=== PATIENT | male | born 1985 | race African-American/Black ===

== ENCOUNTER 2016-06-01 13:03 | Emergency (ER) | payer OTHER ==
[~2016-06-01] VITALS: Wt 65.0 kg
[~2016-06-01 13:03] MED LIST: CIPR500T4 PO; HYDR-3498 PO; LOPE2CAP PO; MAG355OR15 PO; ONDA4TAB8 PO
[2016-06-01] MEDS ORDERED: KETOROLAC 15 MG INJ IV STA (14:42)
[2016-06-01] MEDS ORDERED: SOD CHLORIDE 0.9% 1,000 ML IV STA (14:42)
[2016-06-01] MEDS ORDERED: METOCLOPRAMIDE 10 MG INJ IV ONE (15:00)
[2016-06-01 15:05] LABS: HEMATOCRIT 49.5 % (42.0-52.0); HEMOGLOBIN 16.4 g/dl (14.0-18.0); MEAN CORPUSCULAR HEMOGLOBIN 29.4 pg (29.0-33.0); MEAN CORPUSCULAR HGB CONC 33.1 g/dl (32.0-37.0); MEAN CORPUSCULAR VOLUME 88.9 fl (82.0-101.0); MEAN PLATELET VOLUME 7.2 fl (7.4-10.4); PLATELET COUNT 350 10^3/UL (140-440); RED BLOOD COUNT 5.57 10^6/ul (4.70-6.10); RED CELL DISTRIBUTION WIDTH 13.5 % (11.5-14.5); UNCORRECTED WBC 19.3 10^3/ul (4.8-10.8); WHITE BLOOD COUNT 19.3 10^3/ul (4.8-10.8)
[2016-06-01 15:08] LABS: CONDITION 1; LH ANALYZER COMMENTS 1; SUSPECT 1
[2016-06-01 15:26] LABS: ALBUMIN 5.2 g/dl (3.3-4.9)
[2016-06-01 15:27] LABS: POTASSIUM 4.7 mmol/L (3.5-5.1)
[2016-06-01 15:29] LABS: ALBUMIN/GLOBULIN RATIO 1.06; BILIRUBIN,INDIRECT 0.5 mg/dl (0-1.1); BILIRUBIN,TOTAL 0.5 mg/dl (0.2-1.3); CREATININE 1.14 mg/dl (0.61-1.24); TOTAL PROTEIN 10.1 g/dl (6.1-8.1)
[2016-06-01 15:30] LABS: CALCIUM 10.4 mg/dl (8.4-10.2)
[2016-06-01] MEDS ORDERED: SOD CHLORIDE 0.9% 1,000 ML IV ONE (16:00)
[2016-06-01 16:04] LABS: LYMPHOCYTES # 0.8 10^3/ul (0.8-2.9); MONOCYTE # 0.6 10^3/ul (0.3-0.9); NEUTROPHIL # 17.9 10^3/ul (1.6-7.5)
[2016-06-01] MEDS ORDERED: MAG355OR14 PO (17:05)
[2016-06-01] MEDS ORDERED: FAMO40TA52 PO (17:05)
[2016-06-01] MEDS ORDERED: METO10TA92 PO (17:05)
--- NOTE | 2016-06-01 17:11 | ERD ---
ER Documentation Chief Complaint Date/Time DATE: 06/01/16 TIME: 17:10 Chief Complaint vomiting since lastnight and had syncopal episode today., no trauma HPI 31-year-old man with a history of alcohol abuse presents with epigastric abdominal cramping and multiple episodes of clear nonbloody nonbilious emesis. He states he smokes marijuana daily and has had similar episodes in the past, states he has not drink alcohol in over a year. He denies hematemesis, no blood per rectum or melena, no chest pain or shortness of breath, no fevers or chills, no recent trauma, no dizziness, no headache or blurry vision. ROS All systems reviewed and are negative except as per history of present illness. Medications Home Meds Active Scripts Famotidine* (Famotidine*) 40 Mg Tablet, 40 MG PO HS, #30 TAB Prov:RACHEL ACUNA MD 06/01/16 Mag Hydrox/Al Hydrox/Simeth (Maalox Advanced Suspension) 355 Ml Oral.susp, 2 TSP PO TID, #24 OZ Prov:RACHEL ACUNA MD 06/01/16 Metoclopramide* (Reglan*) 10 Mg Tablet, 10 MG PO TID Y for NAUSEA, #15 TAB Prov:RACHEL ACUNA MD 06/01/16 Discontinued Reported Medications [none] Unknown Strength No Conflict Check 03/24/15 Discontinued Scripts Mag Hydrox/Al Hydrox/Simeth (Maalox Max Strength Multi Symp) 148 Ml Oral.susp, 148 ML PO Q6, #1 Prov:STACY RINALDI DO 12/30/14 Hydrocodone Bit-Acetaminophen* ([place]*) 5-325 Mg Tab, 1 TAB PO Q6 Y for PAIN, # 7 TAB Prov:STACY RINALDI DO 12/30/14 Loperamide Hcl* (Imodium*) 2 Mg Capsule, 2 MG PO .AFTER EA LOOSE BM Y for DIARRHEA, #14 TAB Prov:STACY RINALDI DO 12/30/14 Ondansetron Hcl* (Zofran*) 4 Mg Tablet, 4 MG PO Q6H for NAUSEA AND/OR VOMITING, #10 TAB Prov:STACY RINALDI DO 12/30/14 Ciprofloxacin Hcl* (Ciprofloxacin Hcl*) 500 Mg Tablet, 500 MG PO BID for 3 Days , TAB Prov:STACY RINALDI DO 12/30/14 Allergies Allergies: Coded Allergies: aspirin (Unverified Allergy, Unknown, 06/01/16) PMhx/Soc History of alcohol abuse, marijuana abuse, recurrent abdominal pain and recurrent cyclic vomiting, most likely cannabinoid cyclic vomiting syndrome History of Surgery: No Anesthesia Reaction: No Hx Neurological Disorder: Yes (SEIZURE) Hx Respiratory Disorders: No Hx Cardiac Disorders: No Hx Psychiatric Problems: No Hx Miscellaneous Medical Probl: No Hx Alcohol Use: No Hx Substance Use: Yes (marijuana) Hx Tobacco Use: No Smoking Status: Never smoker FmHx Family History: No diabetes Physical Exam Vitals Vital Signs Date Time Temp Pulse Resp B/P Pulse Ox O2 Delivery O2 Flow Rate FiO2 06/01/16 17:33 98.5 108 16 123/75 100 Room Air 06/01/16 15:59 98.5 98 16 112/62 100 Room Air 06/01/16 13:04 98.5 92 20 125/71 98 Physical Exam GENERAL: Well-developed, dehydrated, afebrile HEENT: Dry mucous membranes, pink conjunctiva, no cervical spine tenderness or step-off deformities, no goiter, no jaundice or icterus, extraocular movements intact without pain. No submandibular induration, and no pharyngeal erythema NEURO: Alert and oriented 3, cranial nerves II through XII intact bilaterally, pupils equal round reactive to light, no focal deficits or facial asymmetry, sensation intact distally Strength 5/5 in upper and lower extremities bilaterally CARDIAC: Regular rate and rhythm, no murmurs rubs or gallops LUNGS: Clear bilaterally no wheezing crackles or stridor ABDOMEN: Soft nontender, no guarding, no rigidity, no rebound, no psoas sign no obturator sign. Normoactive bowel sounds SKIN: Warm and dry to touch, no abrasions, contusions, or hematomas, no lacerations, no ecchymosis, no target lesions, and without ulcers EXTREMITIES: No clubbing cyanosis or edema, calves are bilaterally symmetrical, no Homans sign, no popliteal cord sign. Distal pulses equal and bilateral PSYCH: Normal affect without agitation or irritability Result Diagram: 06/01/16 1500 06/01/16 1500 Results 24 hrs Laboratory Tests Test 06/01/16 15:00 Alanine Aminotransferase (ALT/SGPT) 35IU/L Albumin 5.2g/dl Albumin/Globulin Ratio 1.06 Alkaline Phosphatase 94IU/L Anion Gap 25 Aspartate Amino Transf (AST/SGOT) 34IU/L Blood Morphology Comment Blood Urea Nitrogen 16mg/dl Calcium Level 10.4mg/dl Carbon Dioxide Level 26mmol/L Chloride Level 103mmol/L Creatinine 1.14mg/dl Direct Bilirubin 0.00mg/dl Globulin 4.90g/dl Glucose Level 125mg/dl Hematocrit 49.5% Hemoglobin 16.4g/dl Indirect Bilirubin 0.5mg/dl Lipase 47U/L Lymphocytes # 0.810^3/ul Lymphocytes % 4.0% Mean Corpuscular Hemoglobin 29.4pg Mean Corpuscular Hemoglobin Concent 33.1g/dl Mean Corpuscular Volume 88.9fl Mean Platelet Volume 7.2fl Monocytes # 0.610^3/ul Monocytes % 3.0% Neutrophils # 17.910^3/ul Neutrophils % 93.0% Platelet Count 59216^3/UL Potassium Level 4.7mmol/L Red Blood Count 5.5710^6/ul Red Cell Distribution Width 13.5% Sodium Level 149mmol/L Total Bilirubin 0.5mg/dl Total Protein 10.1g/dl White Blood Count 19.310^3/ul Current Medications Medications (Trade) Dose Ordered Sig/Eduardo Route PRN Reason Start Time Stop Time Status Last Admin Dose Admin Sodium Chloride (NS) 1,000 ml @ 1,000 mls/hr Q1H STAT IV 06/01/16 14:42 06/01/16 15:41 DC 06/01/16 15:06 Metoclopramide HCl (Reglan) 10 mg ONCE ONCE IV 06/01/16 15:00 06/01/16 15:01 DC 06/01/16 15:01 Ketorolac Tromethamine 15 mg 15 mg ONCE STAT IV 06/01/16 14:42 06/01/16 14:43 DC 06/01/16 15:01 Sodium Chloride (NS) 1,000 ml @ 1,000 mls/hr Q1H ONCE IV 06/01/16 16:00 06/01/16 16:59 DC 06/01/16 15:55 Procedures/MDM IV line was established patient was placed on assessment consultant rhythm strip revealed a sinus rhythm at about 80 bpm with upright P and T waves. Patient was afebrile. I administered 2 L normal saline intravenously, Reglan 10 mg IV, and Toradol 50 mg IV with good pain control. Patient had no episodes of vomiting while here. CBC revealed a little reactive leukocytosis at 19, liver function tests were normal, lipase was normal. Differential diagnoses considered, included but not limited to acute coronary syndrome, pulmonary embolism, aortic dissection, abdominal aortic aneurysm, sepsis, stroke, meningitis, encephalitis, pneumonia, appendicitis, cholecystitis , bowel obstruction, pyelonephritis, nephrolithiasis, cystitis, as well as metabolic, hematologic, and electrolyte abnormalities. As well as abscess, cellulitis, fractures, and dislocations. Patient feels much better at this time, and vital signs are normal, symptoms have improved. I did give strict instructions to return to the ED if symptoms continue or worsen, patient will otherwise follow-up with primary care physician. Patient understood instructions and agreed to plan. Departure Diagnosis: Primary Impression: Dehydration Additional Impressions: Cannabinoid hyperemesis syndrome Vomiting Vomiting type: cyclical vomiting Vomiting Intractability: non-intractable Nausea presence: with nausea Qualified Code: G43.A0 - Non-intractable cyclical vomiting with nausea Condition: Good Patient Instructions: Dehydration, Marijuana Abuse, Vomiting (6Y-Adult) RACHEL ACUNA MD Jun 01, 2016 17:11
[2016-06-01 17:33] VITALS: BP 123/75; PULSE 108; RESP 16; TEMP 98.5
== END 2016-06-01 17:33 | disposition home or self-care (01) ==
LOC: E/R 13:03
DX: E86.0 Dehydration (principal); G43.A0 Cyclical vomiting, in migraine, not intractable; F12.188 Cannabis abuse with other cannabis-induced disorder
CPT/HCPCS: 80053; 83690; 85025; J1885; J2765; J7030; 36415; 96374; 96375

== ENCOUNTER 2019-01-11 05:06 | Emergency (ER) | payer OTHER, BC ==
[~2019-01-11] VITALS: Ht 165.1 cm; Wt 64.0 kg
[~2019-01-11 05:06] MED LIST changes: +ACET500C5 PO; -CIPR500T4 PO; +DOXY-214 PO; +FAMO40TA5 PO; -HYDR-3498 PO; +HYDR-4011 PO; -LOPE2CAP PO; +MAG355OR14 PO; -MAG355OR15 PO; +METO10TA92 PO; -ONDA4TAB8 PO
[2019-01-11 05:12] VITALS: BP 131/72; PULSE 93; RESP 20; Ht 165.1 cm; Wt 64.0 kg
[2019-01-11] MEDS ORDERED: ONDANSETRON (ODT) 4 MG TAB ODT STA (05:25)
[2019-01-11] MEDS ORDERED: HYDROCODONE/APAP (10/325) TAB PO ONE (05:30)
== END 2019-01-11 07:06 | disposition home or self-care (01) ==
LOC: FTE 05:06
DX: N45.2 Orchitis (principal)
CPT/HCPCS: 76870; 81001; 87086; 87591; Z7610